=== PATIENT | female | born 1985 | race American Indian/Alaskan Native ===

== ENCOUNTER 2019-02-18 12:28 | Emergency (ER) | payer MEDICAID ==
[2019-02-18] MEDS ORDERED: IPRATROPIUM 0.02% NEBU 2.5 ML IH ONE (12:47)
[2019-02-18] MEDS ORDERED: ALBUTEROL 2.5 MG/3 ML NEBU IH ONE (12:47)
[2019-02-18] MEDS ORDERED: predniSONE 20 MG TAB PO ONE (12:47)
--- NOTE | 2019-02-18 12:47 | Emergency Department Report ---
Blank Doc - Documentation Documentation: 33-year-old female that presents with wheezing and sOB. This initial assessment/diagnostic orders/clinical plan/treatment(s) is/are subject to change based on patient's health status, clinical progression and re- assessment by fellow clinical providers in the ED. Further treatment and workup at subsequent clinical providers discretion. Patient/guardians urged not to elope from the ED as their condition may be serious if not clinically assessed and managed. Initial orders include: 1- Patient sent to [facility] for further evaluation and treatment 2- breathing treatment/steroids
[2019-02-18 12:49] VITALS: BP 129/90
--- NOTE | 2019-02-18 14:46 | Emergency Department Report ---
ED Asthma HPI - General Chief Complaint: Adult Asthma Stated Complaint: CHEST PAIN/WHEEZING Time Seen by Provider: 02/18/19 12:45 Source: patient Mode of arrival: Ambulatory Limitations: No Limitations - History of Present Illness Initial Comments: This is a 33-year-old -[place] female who presents to the emergency room with weakness and, rhinorrhea, and chest pain for 2 weeks. Past medical history of asthma. Patient states she ran out of his inhaler several months ago. She reports occasional flare with change in temperature. She is taking [id number] cold and flu medication with minimal improvement of symptoms. She denies fever, chills, nausea or vomiting, diarrhea, abdominal pain, weakness, or palpitations. MD Complaint: wheezing Onset/Timin -: week(s) Asthma History: childhood onset Severity: mild Context: recent URI Associated Symptoms: dry cough, chest pain. denies: productive cough, fever, hemoptysis, leg edema, syncope - Related Data Current Asthma Therapy: none Previous Rx's Medication Instructions Recorded Last Taken Type ALBUTEROL Inhaler (OR & NICU) 2 puff IH QID PRN #8.5 gram 02/18/19 Unknown Rx [ProAir HFA Inhaler] Prednisone [predniSONE 10 mg 10 mg PO .TAPER #1 tab.ds.pk 02/18/19 Unknown Rx (6-Day Pack, 21 Tabs)] Allergies Allergy/AdvReac Type Severity Reaction Status Date / Time No Known Allergies Allergy Unverified 02/18/19 12:47 ED Review of Systems ROS: Stated complaint: CHEST PAIN/WHEEZING Other details as noted in HPI Constitutional: denies: chills, fever ENT: congestion. denies: ear pain, throat pain Respiratory: cough, SOB with exertion, wheezing. denies: shortness of breath Cardiovascular: chest pain. denies: palpitations Gastrointestinal: denies: abdominal pain, nausea, diarrhea Musculoskeletal: denies: back pain, joint swelling, arthralgia Skin: denies: rash, lesions Neurological: denies: headache, weakness, paresthesias Psychiatric: denies: anxiety, depression ED Past Medical Hx - Past Medical History Hx Asthma: Yes - Social History Smoking Status: Never Smoker Substance Use Type: None - Medications Home Medications: Home Medications Medication Instructions Recorded Confirmed Last Taken Type ALBUTEROL Inhaler (OR & NICU) 2 puff IH QID PRN #8.5 gram 02/18/19 Unknown Rx [ProAir HFA Inhaler] Prednisone [predniSONE 10 mg 10 mg PO .TAPER #1 tab.ds.pk 02/18/19 Unknown Rx (6-Day Pack, 21 Tabs)] ED Physical Exam - General Limitations: No Limitations General appearance: alert, in no apparent distress, obese - ENT ENT exam: Present: normal orophraynx, mucous membranes moist, TM's normal bilaterally, normal external ear exam, other (Turbinates is congested with clear discharge) - Neck Neck exam: Present: normal inspection - Respiratory Respiratory exam: Present: wheezes. Absent: respiratory distress, rales, rhonchi, stridor, chest wall tenderness, accessory muscle use, decreased breath sounds, prolonged expiratory - Cardiovascular Cardiovascular Exam: Present: regular rate, normal rhythm. Absent: systolic murmur, diastolic murmur, rubs, gallop - GI/Abdominal GI/Abdominal exam: Present: soft, normal bowel sounds - Neurological Exam Neurological exam: Present: alert, oriented X3, normal gait - Psychiatric Psychiatric exam: Present: normal affect, normal mood - Skin Skin exam: Present: warm, dry, intact, normal color. Absent: rash ED Course Vital Signs 02/18/19 02/18/19 12:47 15:01 Temperature 98.5 F 98.5 F Pulse Rate 119 H 119 H Respiratory 20 20 Rate Blood Pressure 129/90 O2 Sat by Pulse 97 97 Oximetry ED Medical Decision Making - Medical Decision Making 33 y.o. female that presents with wheezing and chest pain for 2 week. History of Asthma. Noncompliant with medication. She ran out of albuterol inhaler several months ago. Patient examined by me and in slight distress. Vitals stable. Given Atrovent, Proventil, and prednisone once in ER. Wheezes resolved and reports feeling better. Asthma exacerbation, Start albuterol and prednisone taper. Discharged home stable. Encouraged to do supportive care for URI. Return to work tomorrow. Critical care attestation.: If time is entered above; I have spent that time in minutes in the direct care of this critically ill patient, excluding procedure time. ED Disposition Clinical Impression: Cough in adult, Wheezing on expiration Asthma exacerbation Qualifiers: Asthma severity: mild Asthma persistence: intermittent Qualified Code(s): J45.21 - Mild intermittent asthma with (acute) exacerbation Disposition: TO HOME OR SELFCARE Is pt being admited?: No Condition: Stable Instructions: Asthma (ED) Additional Instructions: It is important to use inhaler or have active albuterol inhaler and avoiding asthma triggers. Complete full course of prednisone steroids as prescribed. Follow up with Primary Care Provider in 24-72 hours. Prescriptions: Prednisone [predniSONE 10 mg (6-Day Pack, 21 Tabs)] 10 mg PO .TAPER #1 tab.ds.pk ALBUTEROL Inhaler (OR & NICU) [ProAir HFA Inhaler] 2 puff IH QID PRN #8.5 gram PRN Reason: Shortness Of Breath Referrals: [facility] [place] [Outside] - 3-5 Days [facility] [Outside] - 3-5 Days [facility] [place] [Outside] - 3-5 Days Forms: Work/School Release Form(ED) Time of Disposition: 14:49
== END 2019-02-18 15:01 | disposition home or self-care (01) ==
LOC: ED 12:28
DX: J45.901 Unspecified asthma with (acute) exacerbation (principal)
CPT/HCPCS: 94640; 99283; J7512